=== PATIENT | female | born 1935 | race Caucasian/White ===

== ENCOUNTER 2016-09-07 14:21 | Inpatient (IN) | payer OTHER ==
[~2016-09-07] VITALS: Ht 175.3 cm; Wt 55.3 kg
[2016-09-07] MEDS ORDERED: SODIUM CHLORIDE FLUSH 10ML SYR IVF ONE (14:30)
[2016-09-07 14:57] LABS: BLOOD UREA NITROGEN 25 mg/dL (7-18)
[2016-09-07] MEDS ORDERED: MORPHINE SULFATE 4 MG/ML, 1ML ONE (15:14)
[2016-09-07] MEDS ORDERED: morphine SULFATE 10 MG/ML, 1ML IVPush ONE (15:30)
[2016-09-07] MEDS ORDERED: METHOCARBAMOL 1,000 MG in DEXTROSE 5% 100 ML IV ONE (16:00)
[2016-09-07] MEDS ORDERED: UBIQ100C PO (17:19)
[2016-09-07] MEDS ORDERED: ATOR80TA75 PO (17:19)
[2016-09-07] MEDS ORDERED: CALC1TAB PO (17:19)
[2016-09-07] MEDS ORDERED: DABI75CA3 PO (17:19)
[2016-09-07] MEDS ORDERED: HAWT150C PO (17:19)
[2016-09-07] MEDS ORDERED: LEVO25TA2 PO (17:19)
[2016-09-07] MEDS ORDERED: METO25TA35 PO (17:19)
[2016-09-07] MEDS ORDERED: ARGI500C2 PO (17:19)
[2016-09-07] MEDS ORDERED: LEVO500C PO (17:19)
[2016-09-07] MEDS ORDERED: CALC3.7S5 NAS (17:19)
[2016-09-07 18:05] VITALS: BP 106/69
[2016-09-07 18:11] VITALS: BP 106/69
[2016-09-07] MEDS ORDERED: ONDANSETRON 2MG/ML, 2ML IVPush PRN (18:30)
[2016-09-07] MEDS ORDERED: DOCUSATE 100 MG CAPSULE PO PRN (18:30)
[2016-09-07] MEDS ORDERED: ACETAMINOPHEN 325 MG TABLET PO PRN (18:30)
[2016-09-07] MEDS ORDERED: TEMAZEPAM 15 MG CAPSULE PO PRN (18:30)
[2016-09-07] MEDS ORDERED: hydrALAzine 20 MG/ML, 1ML IVPush PRN (18:30)
[2016-09-07 20:33] VITALS: BP 99/61
[2016-09-07] MEDS: SODIUM CHLORIDE 0.9% 1,000 ML IV SCH (20:45)
[2016-09-07] MEDS: morphine SULFATE 10 MG/ML, 1ML IVPush PRN (20:46)
[2016-09-07] MEDS: ATORVASTATIN 10 MG TABLET PO SCH (21:10)
[2016-09-08] MEDS: morphine SULFATE 10 MG/ML, 1ML IVPush PRN ×3 (00:41→08:48)
[2016-09-08 01:43] VITALS: BP 105/65
[2016-09-08 06:13] LABS: BLOOD UREA NITROGEN 21 mg/dL (7-18)
[2016-09-08 07:45] VITALS: BP 122/68
[2016-09-08] MEDS: METOPROLOL TARTRATE 25 MG TABLET PO SCH (08:12)
[2016-09-08] MEDS: SODIUM CHLORIDE 0.9% 1,000 ML IV SCH (08:43)
[2016-09-08] MEDS ORDERED: LEVOTHYROXINE 100 MCG TABLET PO SCH (09:00)
[2016-09-08] MEDS ORDERED: MIDAZOLAM 1 MG/ML, 2ML ONE (10:43)
[2016-09-08] MEDS ORDERED: FENTANYL PF 250 MCG/5ML ONE (10:43)
[2016-09-08] MEDS ORDERED: TRANEXAMIC ACID 100 MG/ML, 10ML ONE (10:47)
[2016-09-08] MEDS ORDERED: PROPOFOL 10 MG/ML, 20ML ONE (10:55)
[2016-09-08] MEDS ORDERED: ONDANSETRON 2MG/ML, 2ML ONE (10:55)
[2016-09-08] MEDS ORDERED: CEFAZOLIN 1,000 MG ONE (10:55)
[2016-09-08] MEDS ORDERED: DEXAMETHASONE 4 MG/ML, 1ML ONE (10:55)
[2016-09-08] MEDS ORDERED: OXYcodone 5 MG/5 ML ORAL.SOL UDC ONE (13:04)
[2016-09-08] MEDS ORDERED: ACETAMINOPHEN 325 MG TABLET ONE (13:04)
[2016-09-08] MEDS ORDERED: ACETAMINOPHEN 650 MG/20.3 ML UDC ONE (13:04)
[2016-09-08] MEDS ORDERED: FENTANYL PF 100 MCG/2ML ONE (13:04)
[2016-09-08] MEDS: FENTANYL PF 100 MCG/2ML IV PRN ×2 (13:08→13:25)
[2016-09-08] MEDS ORDERED: OXYcodone 5 MG/5 ML ORAL.SOL UDC PO PRN (13:30)
[2016-09-08] MEDS ORDERED: ONDANSETRON 2MG/ML, 2ML IVPush PRN (13:30)
[2016-09-08] MEDS ORDERED: ACETAMINOPHEN 325 MG TABLET PO PRN ×2 (13:30→15:30)
[2016-09-08] MEDS ORDERED: ALBUTEROL SULFATE 2.5 MG/3 ML NPPB STA (13:54)
[2016-09-08 14:30] VITALS: BP 93/56
[2016-09-08] MEDS ORDERED: BISACODYL 10 MG SUPP PR PRN (15:30)
[2016-09-08] MEDS ORDERED: MAGNESIUM HYDROXIDE 8%, 30ML UDC PO PRN (15:30)
[2016-09-08] MEDS ORDERED: HYDROcodone/APAP 5/325 TABLET PO PRN (15:30)
[2016-09-08] MEDS ORDERED: DIPHENHYDRAMINE 25 MG CAPSULE PO PRN (15:30)
[2016-09-08] MEDS ORDERED: ONDANSETRON 2MG/ML, 2ML IV PRN (15:30)
[2016-09-08] MEDS ORDERED: morphine SULFATE 10 MG/ML, 1ML IV PRN (15:30)
[2016-09-08] MEDS ORDERED: DIAZEPAM 5 MG TABLET PO PRN (15:30)
[2016-09-08] MEDS ORDERED: ALUMINUM/MAG/SIMETHICONE 30 ML UDC PO PRN (15:30)
[2016-09-08] MEDS ORDERED: LORazepam 1MG TABLET PO PRN (15:30)
[2016-09-08] MEDS ORDERED: SENNA/DOCUSATE TABLET PO PRN (15:30)
[2016-09-08] MEDS ORDERED: LORazepam 2 MG/ML, 1ML IV PRN (15:30)
[2016-09-08 15:37] LABS: BLOOD UREA NITROGEN 19 mg/dL (7-18)
[2016-09-08] MEDS: D5%-LACTATED RINGERS 1,000 ML IV SCH (17:02)
[2016-09-08] MEDS: OXYcodone 5 MG/5 ML ORAL.SOL UDC PO PRN (17:13)
[2016-09-08] MEDS: CEFAZOLIN PMX 1GM/50ML 50 ML IVPB SCH (18:50)
[2016-09-08 19:11] VITALS: BP 87/45
[2016-09-08] MEDS: ATORVASTATIN 10 MG TABLET PO SCH (20:46)
[2016-09-08] MEDS: DOCUSATE 100 MG CAPSULE PO SCH (20:48)
[2016-09-08] MEDS: SODIUM CHLORIDE FLUSH 10ML SYR IVF SCH (20:48)
[2016-09-08 23:43] VITALS: BP 92/55
[2016-09-09] MEDS: D5%-LACTATED RINGERS 1,000 ML IV SCH ×4 (01:27→23:36)
[2016-09-09] MEDS: CEFAZOLIN PMX 1GM/50ML 50 ML IVPB SCH (03:16)
[2016-09-09] MEDS: OXYcodone 5 MG/5 ML ORAL.SOL UDC PO PRN ×4 (04:25→23:46)
[2016-09-09 04:27] VITALS: BP 104/57
[2016-09-09] MEDS: LEVOTHYROXINE 100 MCG TABLET PO SCH ×2 (06:05→08:08)
[2016-09-09 08:25] VITALS: BP 101/64
[2016-09-09] MEDS: SODIUM CHLORIDE FLUSH 10ML SYR IVF SCH ×2 (08:38→21:09)
[2016-09-09] MEDS: DABIGATRAN 150 MG CAPSULE PO SCH (08:38)
[2016-09-09] MEDS: MULTIVITAMINS/MINERALS TABLET PO SCH ×2 (08:38→08:42)
[2016-09-09] MEDS: METOPROLOL TARTRATE 25 MG TABLET PO SCH (08:38)
[2016-09-09] MEDS: DOCUSATE 100 MG CAPSULE PO SCH ×2 (08:38→21:08)
[2016-09-09 14:25] VITALS: BP 100/61
[2016-09-09] MEDS ORDERED: MORPHINE SULFATE 4 MG/ML, 1ML ONE (17:02)
[2016-09-09] MEDS: ATORVASTATIN 10 MG TABLET PO SCH (21:08)
[2016-09-09 21:32] VITALS: BP 116/67
[2016-09-10] VITALS (7 sets, daily range): BP systolic 93–120; BP diastolic 57–73
[2016-09-10] MEDS: OXYcodone 5 MG/5 ML ORAL.SOL UDC PO PRN ×4 (04:06→22:06)
[2016-09-10] MEDS: D5%-LACTATED RINGERS 1,000 ML IV SCH ×2 (07:30→20:30)
[2016-09-10] MEDS: LEVOTHYROXINE 100 MCG TABLET PO SCH (08:59)
[2016-09-10] MEDS: SODIUM CHLORIDE FLUSH 10ML SYR IVF SCH ×2 (09:00→20:35)
[2016-09-10] MEDS: DABIGATRAN 150 MG CAPSULE PO SCH ×2 (09:00→20:39)
[2016-09-10] MEDS: MULTIVITAMINS/MINERALS TABLET PO SCH (09:00)
[2016-09-10] MEDS: METOPROLOL TARTRATE 25 MG TABLET PO SCH (09:00)
[2016-09-10] MEDS: DOCUSATE 100 MG CAPSULE PO SCH ×2 (09:00→20:38)
[2016-09-10] MEDS: ATORVASTATIN 10 MG TABLET PO SCH (20:39)
[2016-09-11 01:27] VITALS: BP 113/67
[2016-09-11] MEDS: D5%-LACTATED RINGERS 1,000 ML IV SCH ×3 (04:14→20:00)
[2016-09-11] MEDS: OXYcodone 5 MG/5 ML ORAL.SOL UDC PO PRN ×4 (06:43→23:29)
[2016-09-11 06:52] VITALS: BP 129/80
[2016-09-11] MEDS: LEVOTHYROXINE 100 MCG TABLET PO SCH (07:47)
[2016-09-11] MEDS: SODIUM CHLORIDE FLUSH 10ML SYR IVF SCH ×2 (07:50→21:41)
[2016-09-11] MEDS: DOCUSATE 100 MG CAPSULE PO SCH ×2 (09:02→21:41)
[2016-09-11] MEDS: DABIGATRAN 150 MG CAPSULE PO SCH ×2 (09:02→21:40)
[2016-09-11] MEDS: MULTIVITAMINS/MINERALS TABLET PO SCH (09:02)
[2016-09-11] MEDS: METOPROLOL TARTRATE 25 MG TABLET PO SCH (09:02)
[2016-09-11 13:36] VITALS: BP 116/81
[2016-09-11 19:37] VITALS: BP 132/83
[2016-09-11] MEDS: ATORVASTATIN 10 MG TABLET PO SCH (21:40)
[2016-09-12 00:37] VITALS: BP 153/89
[2016-09-12] MEDS: D5%-LACTATED RINGERS 1,000 ML IV SCH ×3 (03:52→19:59)
[2016-09-12 07:32] VITALS: BP 150/87
[2016-09-12] MEDS: LEVOTHYROXINE 100 MCG TABLET PO SCH (07:35)
[2016-09-12] MEDS: OXYcodone 5 MG/5 ML ORAL.SOL UDC PO PRN ×4 (07:35→21:35)
[2016-09-12] MEDS: SODIUM CHLORIDE FLUSH 10ML SYR IVF SCH ×2 (09:00→21:35)
[2016-09-12] MEDS: DOCUSATE 100 MG CAPSULE PO SCH ×2 (09:08→21:34)
[2016-09-12] MEDS: DABIGATRAN 150 MG CAPSULE PO SCH ×2 (09:08→21:34)
[2016-09-12] MEDS: MULTIVITAMINS/MINERALS TABLET PO SCH (09:09)
[2016-09-12] MEDS: METOPROLOL TARTRATE 25 MG TABLET PO SCH ×2 (09:09→18:46)
[2016-09-12 12:34] VITALS: BP 109/67
[2016-09-12 19:56] VITALS: BP 96/57
[2016-09-12] MEDS: ATORVASTATIN 10 MG TABLET PO SCH (21:34)
[2016-09-13 00:02] VITALS: BP 138/83
[2016-09-13] MEDS: D5%-LACTATED RINGERS 1,000 ML IV SCH (04:00)
[2016-09-13] MEDS: OXYcodone 5 MG/5 ML ORAL.SOL UDC PO PRN ×4 (05:46→21:13)
[2016-09-13] MEDS: LEVOTHYROXINE 100 MCG TABLET PO SCH (05:59)
[2016-09-13 06:42] VITALS: BP 144/91
[2016-09-13] MEDS: METOPROLOL TARTRATE 25 MG TABLET PO SCH ×2 (06:44→17:59)
[2016-09-13] MEDS: SODIUM CHLORIDE FLUSH 10ML SYR IVF SCH ×2 (09:00→21:13)
[2016-09-13] MEDS: MULTIVITAMINS/MINERALS TABLET PO SCH (09:02)
[2016-09-13] MEDS: DOCUSATE 100 MG CAPSULE PO SCH ×2 (09:02→21:14)
[2016-09-13] MEDS: DABIGATRAN 150 MG CAPSULE PO SCH ×2 (09:02→21:14)
[2016-09-13 09:13] VITALS: BP 114/74
[2016-09-13] MEDS: METHYLNALTREXONE 12 MG/0.6 ML SQ SCH (10:30)
[2016-09-13 16:32] VITALS: BP 126/73
[2016-09-13 17:58] VITALS: BP 111/71
[2016-09-13 18:39] VITALS: BP 103/66
[2016-09-13] MEDS: ATORVASTATIN 10 MG TABLET PO SCH (21:14)
[2016-09-14 01:28] VITALS: BP 123/67
[2016-09-14] MEDS: OXYcodone 5 MG/5 ML ORAL.SOL UDC PO PRN ×5 (03:19→20:18)
[2016-09-14] MEDS: LEVOTHYROXINE 100 MCG TABLET PO SCH (05:53)
[2016-09-14 07:45] VITALS: BP 127/80
[2016-09-14] MEDS: SODIUM CHLORIDE FLUSH 10ML SYR IVF SCH ×2 (07:56→20:17)
[2016-09-14] MEDS: METOPROLOL TARTRATE 25 MG TABLET PO SCH ×2 (07:57→20:18)
[2016-09-14] MEDS: DOCUSATE 100 MG CAPSULE PO SCH ×2 (07:57→20:18)
[2016-09-14] MEDS: MULTIVITAMINS/MINERALS TABLET PO SCH (07:57)
[2016-09-14] MEDS: DABIGATRAN 150 MG CAPSULE PO SCH ×2 (07:57→20:18)
[2016-09-14 15:01] VITALS: BP 118/63
[2016-09-14 19:00] VITALS: BP 101/61
[2016-09-14] MEDS: ATORVASTATIN 10 MG TABLET PO SCH (20:18)
[2016-09-15 02:00] VITALS: BP 115/77
[2016-09-15] MEDS: OXYcodone 5 MG/5 ML ORAL.SOL UDC PO PRN ×2 (03:13→11:02)
[2016-09-15 07:18] VITALS: BP 122/73
[2016-09-15] MEDS ORDERED: DABI150C PO (08:31)
[2016-09-15] MEDS: DABIGATRAN 150 MG CAPSULE PO SCH (09:07)
[2016-09-15] MEDS: DOCUSATE 100 MG CAPSULE PO SCH (09:07)
[2016-09-15] MEDS: LEVOTHYROXINE 100 MCG TABLET PO SCH (09:08)
[2016-09-15] MEDS: MULTIVITAMINS/MINERALS TABLET PO SCH (09:08)
[2016-09-15] MEDS: SODIUM CHLORIDE FLUSH 10ML SYR IVF SCH (09:08)
[2016-09-15] MEDS: METOPROLOL TARTRATE 25 MG TABLET PO SCH (09:08)
[2016-09-15] MEDS: METHYLNALTREXONE 12 MG/0.6 ML SQ SCH (10:43)
== END 2016-09-15 13:16 | DRG 480 ==
LOC: ED 15:30 → EDIP 16:55 → 4NOR 17:54
PROVIDERS: ADMIT Family Medicine
PROC: 2W39X1Z Immobilization of Left Upper Extremity using Splint (ICD-10-PCS; 2016-09-08)
PROC: 0QS736Z Reposition Left Upper Femur with Intramedullary Internal Fixation Device, Percutaneous Approach (ICD-10-PCS; principal; 2016-09-08 11:00)
PROC: 0PSJXZZ Reposition Left Radius, External Approach (ICD-10-PCS; 2016-09-08 11:00)
DX: S72.142A Displaced intertrochanteric fracture of left femur, initial encounter for closed fracture (principal); E43 Unspecified severe protein-calorie malnutrition; S52.502A Unspecified fracture of the lower end of left radius, initial encounter for closed fracture; D68.69 Other thrombophilia; W19.XXXA Unspecified fall, initial encounter; I11.9 Hypertensive heart disease without heart failure; K59.00 Constipation, unspecified; F43.9 Reaction to severe stress, unspecified; D50.0 Iron deficiency anemia secondary to blood loss (chronic); N28.9 Disorder of kidney and ureter, unspecified; I48.91 Unspecified atrial fibrillation; R32 Unspecified urinary incontinence; Y92.007 Garden or yard of unspecified non-institutional (private) residence as the place of occurrence of the external cause; Z74.01 Bed confinement status; Y93.89 Activity, other specified; Z79.899 Other long term (current) drug therapy; Z90.710 Acquired absence of both cervix and uterus
CPT/HCPCS: 36415; 70450; 71010; 72125; 76000; 80048; 82040; 85014; 85018; 85025; 85610; 86850; 86900; 86923; 93005; 94640; 96374; C1713; J0690; J1100; J2250; J2405; J2704; J3010; J2270; J2800; J7030; J7121; P9016

== ENCOUNTER 2017-04-05 22:53 | Emergency (ER) | payer OTHER ==
[~2017-04-05] VITALS: Ht 175.3 cm; Wt 58.4 kg
[~2017-04-05 22:53] MED LIST: ARGI500C2 PO; ATOR-2 PO; CALC1TAB PO; CALC3.7S5 NAS; DABI150C PO; DABI75CA3 PO; HAWT150C PO; LEVO25TA2 PO; LEVO500C3 PO; METO25TA35 PO; UBIQ100C3 PO
[2017-04-05] MEDS ORDERED: ACET500T76 PO (23:34)
[2017-04-05] MEDS ORDERED: UBID100C41 PO (23:35)
[2017-04-06] MEDS ORDERED: METOPROLOL TARTRATE 25 MG TABLET PO ONE
[2017-04-06 00:02] LABS: BASOPHILS # (AUTO) 0.06 x10^3/uL (0-0.1); BASOPHILS % (AUTO) 1 % (0-1); EOSINOPHILS % (AUTO) 4 % (1-7); LYMPHOCYTES # (AUTO) 1.63 x10^3/uL (1-3.4); LYMPHOCYTES % (AUTO) 21 % (22-44); MD NO; MEAN CORPUSCULAR HEMOGLOBIN 33.8 pg (27.0-34.8); MEAN CORPUSCULAR HGB CONC 33.1 g/dL (32.4-35.8); MEAN CORPUSCULAR VOLUME 102.2 fL (80-100); MONOCYTES # (AUTO) 0.75 x10^3/uL (0.2-0.8); MONOCYTES % (AUTO) 10 % (2-9); NEUTROPHILS # (AUTO) 5.07 x10^3/uL (1.8-6.8); NEUTROPHILS % (AUTO) 65 % (42-75); PLATELET COUNT 218 x10^3/uL (130-400); RED BLOOD COUNT 4.17 x10^6/uL (3.82-5.3); RED CELL DISTRIBUTION WIDTH 14.1 % (9.6-15.2)
[2017-04-06 00:13] LABS: ANION GAP 10 mmol/L (5-15); CALCIUM 9.3 mg/dL (8.5-10.1); CHLORIDE 103 mmol/L (98-107); CREATININE 0.91 mg/dL (0.55-1.02)
[2017-04-06 00:38] LABS: CULTURE INDICATED? YES; MICROSCOPIC INDICATED
[2017-04-06 01:23] VITALS: BP 136/72
== END 2017-04-06 02:01 | disposition home or self-care (01) ==
LOC: ED 23:59
DX: I48.2 Chronic atrial fibrillation (principal); I10 Essential (primary) hypertension; Z79.01 Long term (current) use of anticoagulants
CPT/HCPCS: 36415; 80048; 81001; 85025; 87086; 93005; 99285

== ENCOUNTER 2017-11-18 16:15 | Emergency (ER) | payer OTHER ==
[~2017-11-18] VITALS: Ht 175.3 cm; Wt 55.4 kg
[~2017-11-18 16:15] MED LIST changes: +ACET500T76 PO; +UBID100C41 PO
[2017-11-18] MEDS ORDERED: UBIQ100C3 PO (16:33)
[2017-11-18] MEDS ORDERED: Tumeric PO (16:33)
[2017-11-18 17:28] LABS: BASOPHILS # (AUTO) 0.04 x10^3/uL (0-0.1); BASOPHILS % (AUTO) 1 % (0-1); EOSINOPHILS # (AUTO) 0.34 x10^3/uL (0-0.4); EOSINOPHILS % (AUTO) 4 % (1-7); LYMPHOCYTES # (AUTO) 1.72 x10^3/uL (1-3.4); LYMPHOCYTES % (AUTO) 21 % (22-44); MD NO; MEAN CORPUSCULAR HGB CONC 33.9 g/dL (32.4-35.8); MEAN CORPUSCULAR VOLUME 100.2 fL (80-100); MEAN PLATELET VOLUME 8.1 fL (7.4-10.4); MONOCYTES # (AUTO) 0.95 x10^3/uL (0.2-0.8); MONOCYTES % (AUTO) 12 % (2-9); NEUTROPHILS # (AUTO) 4.97 x10^3/uL (1.8-6.8); NEUTROPHILS % (AUTO) 62 % (42-75); PLATELET COUNT 205 x10^3/uL (130-400); RED BLOOD COUNT 4.19 x10^6/uL (3.82-5.3); RED CELL DISTRIBUTION WIDTH 14.1 % (9.6-15.2)
[2017-11-18 17:35] LABS: ALBUMIN 3.4 g/dL (3.4-5.0); ANION GAP 6 mmol/L (5-15); CALCIUM 8.7 mg/dL (8.5-10.1); CHLORIDE 105 mmol/L (98-107); CREATININE 1.03 mg/dL (0.55-1.02); INTERNATIONAL NORMALIZED RATIO 1.27 (0.93-1.1)
[2017-11-18 17:39] LABS: TROPONIN I < 0.015 ng/mL (0.000-0.045)
[2017-11-18 18:44] VITALS: BP 128/77
== END 2017-11-18 18:55 | disposition home or self-care (01) ==
LOC: ED 18:21
DX: I10 Essential (primary) hypertension (principal); R53.1 Weakness; I48.91 Unspecified atrial fibrillation
CPT/HCPCS: 36415; 71045; 80048; 82040; 84484; 85025; 85610; 85730; 93005; 99285